=== PATIENT | male | born 1995 | race Caucasian/White ===

== ENCOUNTER 2018-08-29 03:45 | Emergency (ER) | payer SELFPAY ==
[~2018-08-29] VITALS: Ht 172.7 cm; Wt 83.0 kg
[2018-08-29 03:48] VITALS: BP_SYST 155
[2018-08-29 04:21] VITALS: BP_SYST 140
== END 2018-08-29 04:17 | disposition home or self-care (01) ==
LOC: SED 03:45
DX: Z04.1 Encounter for examination and observation following transport accident (principal); V43.52XA Car driver injured in collision with other type car in traffic accident, initial encounter; Y93.89 Activity, other specified; Y92.410 Unspecified street and highway as the place of occurrence of the external cause; Y99.8 Other external cause status
CPT/HCPCS: 99283